=== PATIENT | female | born 1960 | race Hispanic/Latino ===

== ENCOUNTER → 2023-05-21 | Outpatient (CLI) | payer MEDICAID ==
[~2023-05-21] MED LIST: REGADENOSON 0.4 MG/5 ML PF SYG IVP ONE
== END | disposition home or self-care (01) ==
LOC: SHCH 08:04
PROVIDERS: ATTEND Internal Medicine Cardiovascular Disease
DX: I20.9 Angina pectoris, unspecified (principal); R06.09 Other forms of dyspnea
CPT/HCPCS: 78452; 96374; 93017; J2785; A9500 ×2

== ENCOUNTER → 2023-05-23 | Outpatient (CLI) | payer MEDICAID | END | disposition home or self-care (01) | LOC: RAH 11:20 | PROVIDERS: ATTEND Family Medicine | DX: M25.452 Effusion, left hip (principal); M25.552 Pain in left hip; K57.90 Diverticulosis of intestine, part unspecified, without perforation or abscess without bleeding | CPT/HCPCS: 73721 ==

== ENCOUNTER → 2023-06-02 | Outpatient (CLI) | payer MEDICAID | END | disposition home or self-care (01) | LOC: SHCH 15:18 | PROVIDERS: ATTEND Internal Medicine Cardiovascular Disease | DX: R06.09 Other forms of dyspnea (principal); I10 Essential (primary) hypertension | CPT/HCPCS: 93306 ==

== ENCOUNTER 2023-08-31 14:41 | Emergency (ER) | payer MEDICAID ==
[~2023-08-31] VITALS: Ht 154.9 cm; Wt 60.8 kg
[2023-08-31] MEDS ORDERED: METH4TAB3 PO (18:18)
[2023-08-31] MEDS: HYDROCODONE/ACETAMINOPHEN 5/325 MG TAB PO ONE (18:27)
[2023-08-31] MEDS: DEXAMETHASONE SOD PHOSPHATE 4 MG/ML 1ML VIAL IM ONE (18:27)
[2023-08-31 18:36] VITALS: BP 121/62; PULSE 78; RESP 16; O2SAT 97
== END 2023-08-31 18:39 | disposition home or self-care (01) ==
LOC: EDH 14:41
DX: M16.11 Unilateral primary osteoarthritis, right hip (principal); M17.11 Unilateral primary osteoarthritis, right knee; F41.9 Anxiety disorder, unspecified; M19.90 Unspecified osteoarthritis, unspecified site; E03.9 Hypothyroidism, unspecified
CPT/HCPCS: 99284; 73521; 73562; 96372; J1100

== ENCOUNTER 2024-05-29 10:31 | Observation (INO) | payer MEDICARE ==
[2024-05-23 11:45] VITALS: BP 142/61; PULSE 64; RESP 18; TEMP 97.3
[2024-05-23 11:52] LABS: BASOPHILS # (AUTO) 0.04 K/uL (0.00-0.20); BASOPHILS % (AUTO) 0.8 % (0.0-5.0); EOSINOPHILS # (AUTO) 0.08 K/uL (0.00-0.70); EOSINOPHILS % (AUTO) 1.7 % (0.0-8.0); HEMATOCRIT 38.6 % (36-48); IMMATURE GRANULOCYTE ABSOLUTE 0.01 K/uL (0-1); LYMPHOCYTES # (AUTO) 1.8 K/uL (1.0-4.8); MEAN CORPUSCULAR HEMOGLOBIN 32.2 pg (27.0-33.0); MEAN CORPUSCULAR HGB CONC 33.2 g/dL (32.0-36.0); MONOCYTES # (AUTO) 0.3 K/uL (0.1-1.0); NEUTROPHILS # (AUTO) 2.5 K/uL (1.8-7.7); NEUTROPHILS % (AUTO) 52.3 % (40.0-77.0); PLATELET COUNT (AUTO) 306 K/uL (130-400); RED BLOOD CELL COUNT(AUTO) 3.98 MIL/uL (4.00-5.50); RED CELL DISTRIBUTION WIDTH 12.6 % (11.0-15.5); WHITE BLOOD COUNT (AUTO) 4.8 K/uL (4.8-10.8)
[2024-05-23 12:01] LABS: INR <= 0.93 (0.85-1.15); PROTHROMBIN TIME 9.9 SEC (9.6-11.6)
[2024-05-23 12:13] LABS: APPEARANCE,URINE CLOUDY (CLEAR); BILIRUBIN,URINE NEGATIVE (NEGATIVE); COLOR,URINE YELLOW (YELLOW); GLUCOSE, URINE (UA) NEGATIVE (NEGATIVE); KETONES,URINE NEGATIVE (NEGATIVE); LEUKOCYTE ESTERASE ,URINE NEGATIVE Leu/uL (NEGATIVE); NITRATE,URINE NEGATIVE (NEGATIVE); OCCULT BLOOD,URINE NEGATIVE (NEGATIVE); PH,URINE 7.5 (5.0-8.0); PROTEIN,URINE NEGATIVE (NEGATIVE)
[2024-05-23 12:16] LABS: ADD UA MICROSCOPIC NO
[~2024-05-29] VITALS: Ht 162.6 cm; Wt 62.6 kg
[2024-05-29] VITALS (21 sets, daily range): BP systolic 103–126; BP diastolic 50–60; PULSE 56–92; RESP 13–20; TEMP 97.1–99.7
[~2024-05-29 10:31] MED LIST changes: +ALEN70TA80 PO; +ATOR20TA65 PO; +CELE-125 PO; +DULO30CA52 PO; +GABA300C PO; +LEVO112C4 PO; +OLME20TA68 PO; +OXYB15TA19 PO; +PRAM0.5T12 PO; -REGADENOSON 0.4 MG/5 ML PF SYG IVP ONE; +TRAMADOL PO; +TRAZODONE PO
[2024-05-29] MEDS: LACTATED RINGERS 1000ML 1,000 ML IV ONE (11:46)
[2024-05-29] MEDS: ceFAZolin SODIUM 2 GM VIAL ONE (11:46)
[2024-05-29] MEDS ORDERED: VANCOMYCIN 500MG+NS 100ML 100 ML IV ONE (15:54)
[2024-05-29] MEDS ORDERED: MIDAZOLAM HCL 1 MG/ML 2ML VIAL ONE (16:03)
[2024-05-29] MEDS ORDERED: rocuRONium bROMide 10MG/1ML 5ML VL ONE ×2 (16:03→17:08)
[2024-05-29] MEDS ORDERED: proPOFol 10 MG/ML 20ML VIAL IV ONE (16:03)
[2024-05-29] MEDS ORDERED: FENTanyl CITRate PF 50 MCG/1 ML 2ML VIAL ONE (16:04)
[2024-05-29] MEDS ORDERED: dexaMETHasone SOD PHOSPHATE 10MG/ML 1ML VIAL ONE (16:06)
[2024-05-29] MEDS ORDERED: ROPivacaine 0.5% 5MG/ML 30ML ONE (16:08)
[2024-05-29] MEDS ORDERED: TRANEXAMIC ACID 1000MG/10ML ONE (16:46)
--- NOTE | 2024-05-29 17:05 | NUR ---
Pt pending surgery, PT to eval in AM
[2024-05-29] MEDS: ceFAZolin SODIUM 1 GM VIAL ONE (17:08)
[2024-05-29] MEDS ORDERED: NOREPINEPHRINE BITARTRATE 1 MG/1 ML ML IV ONE (19:01)
--- NOTE | 2024-05-29 19:07 | HMCIMG ---
INTRAOPERATIVE FLUOROSCOPIC GUIDANCE UP TO 1 HOUR. IMPRESSION: Intraoperative fluoroscopic guidance was provided for ORIF right total hip arthroplasty, which was performed by Dr. Fabian. Total fluoroscopy time was 29.4 seconds, and administered dose, 5.37 mGy. A total of 5 spot images obtained. Please refer to the orthopedic procedure note for further details.
--- NOTE | 2024-05-29 19:14 | OP ---
Operative Note: DATE OF PROCEDURE: 05/29/24 SURGEON: ABDIFATAH LOTT MD MANAGER TRADE: [Ramakrishna Menchaca CFA] ANESTHESIA: [General anesthesia plus regional block] ANESTHESIOLOGIST/PORTABLE ROUTER OPERATOR: [Tej Bishop] PREOPERATIVE DIAGNOSIS: [Right hip osteoarthritis] POSTOPERATIVE DIAGNOSIS: [Same] IMPLANTS: [BIOMET. G7 acetabular cup size 50 mm. Hi wall liner size 36 mm. Femoral stem taper lock size six high offset. Femoral head size 36-3.] PROCEDURE: [Right total hip arthroplasty] ESTIMATED BLOOD LOSS: [300 mL] INDICATIONS: [The patient is a 63-year-old female with history of pain to both of her hips secondary to osteoarthritis. The patient has been treated conservatively and is no longer responding to treatment. The patient has more pain in the right hip and she would like to proceed with a total hip arthroplasty procedure that she understood, risks, benefits and possible complications and agreed signed the consent form] DESCRIPTION OF PROCEDURE: [After adequate general anesthesia was achieved and regional block obtained the patient was placed in the left lateral decubitus with the use of the beanbag and hip holders. The right lower extremity was prepped and draped in the usual manner after x-rays taken with the C-arm were used to check the position of the pelvis. After anatomic landmarks were identified we proceeded to make an incision in the skin centered on the greater trochanter and with a slight curve posteriorly followed by dissection of the subcutaneous tissue with the use of the Bovie cautery. The tensor fascia ena and gluteus nel fascia were then opened longitudinally and the fibers of the gluteus nel muscle were split manually entering into the deep space applying then the Charnley retractor. A bone infusion needle was then inserted at the base of the greater trochanter and through this needle we proceeded to inject 50 mL of normal saline solution with 500 mg of vancomycin into the femur. The needle was then removed. The posterior border of the gluteus medius was identified and elevated and a curved Hohmann retractor was inserted underneath to be able to expose the gluteus minimus and short external rotators. The interval between the piriformis and gluteus minimus was open with the use of the Bovie cautery and then the rotators and capsule were detached from their femoral neck insertion and retracted posteriorly entering into the hip joint. At this point a marker was applied in the iliac bone just superior to the acetabulum with the use of drill guide to be able to check the offset and the length of the extremity at the level of the trochanter. Once the marker was made this was passed to the back table. We then proceeded to dislocate the hip by flexing and then internally rotating it and after retractors were applied to the base of the femoral neck we proceeded to use the oscillating saw to cut the neck at this level. We then proceeded to use a box osteotome to enter the canal followed by insertion of the canal finder and then we proceeded to broach from size up to above-mentioned size. At this point we removed the last broach and packed the canal for hemostasis and after the retractors were removed we proceeded then to bring the hip into extension. Hohmann retractors were then applied anteriorly and posteriorly to the acetabulum removing then the labrum and foveal tissue. We proceeded to ream the acetabulum medializing it obtainin g adequate cortico-cancellous bone. After irrigation was of the acetabulum was completed we proceeded then to apply the final component and x-rays were taken correcting the orientation of the acetabulum to its final position. Then a trial liner was inserted as well as a trial femur and then we proceeded to apply the trial femoral heads reducing the hip and taken x-rays until we identify the adequate size component using the marker to check the length and offset as well as clinically using the shuck test and measuring the leg length. Once we were satisfied we proceeded to remove the components from the femur and the trial liner after dislocating the hip and after copious irrigation of the joint was completed we then proceeded to apply the final liner followed by the insertion of the final femoral stem femoral head. Once the hip was reduced we used a marker once again and the leg length and offset were normal and clinically the patient had normal length, negative shuck test and x-rays reveal adequate leg le ngth compared to the opposite hip. The joint was then copiously irrigated with a diluted Betadine solution followed by irrigation with antibiotic solution with jet lavage once again and we then proceeded to take final x-rays and then to close the wound first with approximation of the capsule with #1 Vicryl simple stitches followed by approximation of the short external rotators with #2 PDS suture passing the sutures through the bone. The Charnley retractor was then removed and the gluteus nel fascia was closed with a #1 Vicryl running stitch and the tensor fascia ena with #1 Vicryl crossed stitches. The subcutaneous tissue was closed with #2 Monocryl inverted stitches and the skin was closed with 3-0 Monocryl subcuticularly. A suction dressing was then applied to the incision and the drapes were then removed the patient being placed in the supine position. Leg length was checked and noted to be adequate. The patient was then transferred to a hospital bed and taken to recovery room for follow-up by anesthesia. There were no complications during the procedure.] ABDIFATAH LOTT MD May 29, 2024 19:13
[2024-05-29] MEDS ORDERED: ePHEDrine SULFate 50 MG/ML AMPULE ONE (19:22)
[2024-05-29] MEDS ORDERED: GLYCOPYRROLATE 0.2 MG/ML 5 ML VIAL ONE (19:23)
[2024-05-29] MEDS ORDERED: NEOSTIGMINE METHYLSULFATE 1MG/ML IV ONE (19:23)
[2024-05-29] MEDS ORDERED: ondanSETRON 4MG INJ ONE (19:24)
[2024-05-29] MEDS ORDERED: DiphenhydrAMINE HCL 50 MG/ML VIAL IVP PRN (19:30)
[2024-05-29] MEDS ORDERED: PoTASSium chl 10% ELIXIR 20MEQ 20 MEQ/15 ML UDCUP PO PRN (19:30)
[2024-05-29] MEDS ORDERED: PoTASSium chloRIDE 20MEQ ER 20 MEQ ERTAB PO PRN (19:30)
[2024-05-29] MEDS ORDERED: CALCIUM CARB 500MG PO PRN (19:30)
[2024-05-29] MEDS ORDERED: ondanSETRON 4MG INJ IVP PRN (19:30)
[2024-05-29] MEDS ORDERED: PoTASSium chloRIDE 20MEQ/100ML 100 ML IV PRN (19:30)
[2024-05-29] MEDS ORDERED: FERROUS FUMARATE 324 MG TABLET PO PRN (19:30)
[2024-05-29] MEDS: TRANEXAMIC ACID 1000MG/10ML ONE (19:59)
[2024-05-29] MEDS: hydroMORPHone 1 MG INJ ONE ×2 (20:05→20:25)
[2024-05-29] MEDS: 0.9%NACL 1000ML 1,000 ML IV SCH (20:25)
[2024-05-29] MEDS: 0.9%NACL 1000ML 1,000 ML IV ONE (20:29)
[2024-05-29] MEDS: CeleCOXib 200 MG CAP PO SCH (21:13)
[2024-05-29] MEDS: ketOROlac 15MG/ML VIAL (15MG/ML) IV PRN (21:13)
[2024-05-29] MEDS: ASPIRIN 81 MG EC TAB PO SCH (21:13)
[2024-05-29] MEDS: doCUSate SODIUM 100 MG CAP PO SCH (21:23)
[2024-05-30] VITALS (10 sets, daily range): BP systolic 95–129; BP diastolic 30–55; PULSE 67–86; RESP 13–18; TEMP 98–98.6; O2SAT 96
[2024-05-30] MEDS: ceFAZolin SODIUM 1 GM VIAL IVP SCH (00:51)
[2024-05-30] MEDS: HYDROcodone/APAP 5/325 1 TAB TABLET PO PRN (00:51)
[2024-05-30 03:59] LABS: HEMATOCRIT 31.9 % (36-48); MEAN CORPUSCULAR HEMOGLOBIN 32.1 pg (27.0-33.0); MEAN CORPUSCULAR HGB CONC 32.6 g/dL (32.0-36.0); MEAN CORPUSCULAR VOLUME 98.5 fL (79-99); RED BLOOD CELL COUNT(AUTO) 3.24 MIL/uL (4.00-5.50); RED CELL DISTRIBUTION WIDTH 12.8 % (11.0-15.5); WHITE BLOOD COUNT (AUTO) 6.7 K/uL (4.8-10.8)
[2024-05-30 04:11] LABS: CREATININE 0.8 mg/dL (0.5-1.0); POTASSIUM 4.1 mmol/L (3.5-5.1)
[2024-05-30] MEDS: CeleCOXib 200 MG CAP PO SCH (07:48)
[2024-05-30] MEDS: duloXETine HCL 30 MG CAP PO SCH (08:27)
[2024-05-30] MEDS: LoSARTan 100 MG TABLET PO SCH (08:27)
[2024-05-30] MEDS: polyETHYLene GLYCol 3350 17 GM POWD.PACK PO SCH (08:28)
[2024-05-30] MEDS: GABAPENTIN 300 MG CAPSULE PO SCH (08:28)
[2024-05-30] MEDS: atorVAStatin 20 MG TABLET PO SCH (08:28)
[2024-05-30] MEDS: oxyBUTYnin 5 MG TAB.SR.24H PO SCH (09:56)
--- NOTE | 2024-05-30 10:17 | PN ---
Ortho postop day one. This morning patient is still in bed she is tearful reporting that she has been trying to get someone to assist her to the bathroom. States that she has not feeling very well cared for. I discussed with the patient that I will address this with her nurse this morning and clarify what is going on. I have assured her that we are here to help her get better and progress. Discussed that we will have her nurse come in so that she can discuss her concerns with her and she understood. Otherwise she is reporting minimal pain. Vital signs are stable. Afebrile. Laboratory results reviewed. Noted to have a drop in hemoglobin and hematocrit after undergoing total hip arthroplasty. We will address per protocol as necessary. Operative findings discussed with the patient. In forced incentive spirometry. Dressing is intact. Distal neurovascular exam intact. Gastrocnemius soft nontender negative Homans. Voiding on her own. Pending physical therapy. Patient is not sure of her discharge as position whether nursing home facility or home health/PT. We will defer this to case management. Assessment: Status post right total hip arthroplasty. Acute postoperative blood loss anemia. Plan: Continue with Dr. Vogt total hip arthroplasty protocol and discharge planning. Acute postoperative blood loss anemia addressed per protocol as necessary Vitals/Labs Vital Signs Date Time Temp Pulse Resp B/P (MAP) Pulse Ox O2 Delivery O2 Flow Rate FiO2 05/30/24 08:00 98.6 86 18 129/55 96 Room Air 0.0 05/29/24 20:00 100 Laboratory Tests 05/30/24 03:42 Medications Current Medications Cefazolin Sodium 2 gm STK-MED ONCE .ROUTE; Start 05/29/24 at 11:20; Stop 05/29/24 at 11:20; Status DC Lactated Ringer's 1,000 ml @ As Directed STK-MED ONCE IV Last administered on 05/29/24at 11:46; Start 05/29/24 at 11:20; Stop 05/29/24 at 11:20; Status DC Vancomycin HCl 100 ml @ As Directed STK-MED ONCE IV; Start 05/29/24 at 15:54; Stop 05/29/24 at 15:55; Status DC Cefazolin Sodium 1 gm STK-MED ONCE .ROUTE Last administered on 05/29/24at 17:08; Start 05/29/24 at 15:55; Stop 05/29/24 at 15:55; Status DC Propofol 200 mg STK-MED ONCE IV; Start 05/29/24 at 16:03; Stop 05/29/24 at 16:03; Status DC Midazolam HCl 2 mg STK-MED ONCE .ROUTE; Start 05/29/24 at 16:03; Stop 05/29/24 at 16:03; Status DC Rocuronium [place] 50 mg STK-MED ONCE .ROUTE; Start 05/29/24 at 16:03; Stop 05/29/24 at 16:03; Status DC Fentanyl Citrate 100 mcg STK-MED ONCE .ROUTE; Start 05/29/24 at 16:04; Stop 05/29/24 at 16:04; Status DC Dexamethasone Sodium Phosphate 10 mg STK-MED ONCE .ROUTE; Start 05/29/24 at 16:06; Stop 05/29/24 at 16:06; Status DC Ropivacaine 150 mg STK-MED ONCE .ROUTE; Start 05/29/24 at 16:08; Stop 05/29/24 at 16:08; Status DC Tranexamic Acid 1,000 mg STK-MED ONCE .ROUTE; Start 05/29/24 at 16:46; Stop 05/29/24 at 16:46; Status DC Rocuronium [place] 50 mg STK-MED ONCE .ROUTE; Start 05/29/24 at 17:08; Stop 05/29/24 at 17:08; Status DC Norepinephrine Bitartrate 4 mg STK-MED ONCE IV; Start 05/29/24 at 19:01; Stop 05/29/24 at 19:07; Status DC Sodium Chloride 1,000 ml @ 100 mls/hr Q10H IV Last administered on 05/29/24at 20:25; Start 05/29/24 at 19:30; Stop 05/30/24 at 19:29 Polyethylene Glycol 17 gm DAILY PO Last administered on 05/30/24at 08:28; Start 05/30/24 at 09:00; Stop 06/29/24 at 08:59 Bisacodyl 10 mg DAILY PRN RC; Start 06/01/24 at 19:30; Stop 07/01/24 at 19:29 Ketorolac Tromethamine 15 mg Q6H PRN IV Last administered on 05/30/24at 04:09; Start 05/29/24 at 19:30; Stop 06/03/24 at 19:29 Ferrous Fumarate 324 mg DAILY PRN PO; Start 05/29/24 at 19:30; Stop 06/28/24 at 19:29 Calcium Carbonate 500 mg Q12H PRN PO; Start 05/29/24 at 19:30; Stop 06/28/24 at 19:29 Diphenhydramine HCl 25 mg Q6H PRN IVP; Start 05/29/24 at 19:30; Stop 06/28/24 at 19:29 Ondansetron HCl 4 mg Q6H PRN IVP; Start 05/29/24 at 19:30; Stop 06/28/24 at 19:29 Cefazolin Sodium 2 gm Q8H IVP Last administered on 05/30/24at 08:25; Start 05/30/24 at 00:30; Stop 05/30/24 at 08:31; Status DC Docusate Sodium 100 mg BID PO Last administered on 05/30/24at 08:27; Start 05/29/24 at 21:00; Stop 06/28/24 at 20:59 Potassium Chloride 100 ml @ 100 mls/hr AD PRN IV; Start 05/29/24 at 19:30; Stop 06/28/24 at 19:29 Potassium Chloride 20 meq AD PRN PO; Start 05/29/24 at 19:30; Stop 06/28/24 at 19:29 Potassium Chloride 20 meq AD PRN PO; Start 05/29/24 at 19:30; Stop 06/28/24 at 19:29 Celecoxib 200 mg BID PO Last administered on 05/30/24at 08:28; Start 05/29/24 at 21:00; Stop 06/28/24 at 20:59 Acetaminophen/ Hydrocodone Bitart Q4H PRN PO Last administered on 05/30/24at 00:51; Start 05/29/24 at 19:30; Stop 06/03/24 at 19:29 Aspirin 81 mg BID PO Last administered on 05/30/24at 08:27; Start 05/29/24 at 21:00; Stop 06/28/24 at 20:59 Ephedrine Sulfate 50 mg STK-MED ONCE .ROUTE; Start 05/29/24 at 19:22; Stop 05/29/24 at 19:27; Status DC Glycopyrrolate 1 mg STK-MED ONCE .ROUTE; Start 05/29/24 at 19:23; Stop 05/29/24 at 19:27; Status DC Neostigmine Methylsulfate 10 mg STK-MED ONCE IV; Start 05/29/24 at 19:23; Stop 05/29/24 at 19:27; Status DC Ondansetron HCl 4 mg STK-MED ONCE .ROUTE; Start 05/29/24 at 19:24; Stop 05/29/24 at 19:27; Status DC Tranexamic Acid 1,000 mg STK-MED ONCE .ROUTE Last administered on 05/29/24at 19:59; Start 05/29/24 at 19:45; Stop 05/29/24 at 19:45; Status DC Hydromorphone HCl 1 mg STK-MED ONCE .ROUTE Last administered on 05/29/24at 20:05; Start 05/29/24 at 19:54; Stop 05/29/24 at 19:54; Status DC Hydromorphone HCl 1 mg STK-MED ONCE .ROUTE Last administered on 05/29/24at 20:25; Start 05/29/24 at 20:09; Stop 05/29/24 at 20:10; Status DC Sodium Chloride 1,000 ml @ As Directed STK-MED ONCE IV; Start 05/29/24 at 20:24; Stop 05/29/24 at 20:24; Status DC Atorvastatin Calcium 20 mg DAILY PO Last administered on 05/30/24at 08:28; Start 05/30/24 at 09:00; Stop 06/29/24 at 08:59 Celecoxib 200 mg DAILY PO; Start 05/30/24 at 09:00; Stop 06/29/24 at 08:59 Duloxetine HCl 30 mg DAILY PO Last administered on 05/30/24at 08:27; Start 05/30/24 at 09:00; Stop 06/29/24 at 08:59 Gabapentin 300 mg TID PO Last administered on 05/30/24at 08:28; Start 05/30/24 at 09:00; Stop 06/29/24 at 08:59 Alendronate Sodium 70 mg QWEEK@0630 PO; Start 06/01/24 at 06:30; Stop 07/01/24 at 06:29 Levothyroxine Sodium 112 mcg SYN PO; Start 05/31/24 at 06:30; Stop 06/30/24 at 06:29 Losartan Potassium 100 mg DAILY PO Last administered on 05/30/24at 08:27; Start 05/30/24 at 09:00; Stop 06/29/24 at 08:59 Oxybutynin Chloride 15 mg DAILY PO Last administered on 05/30/24at 09:56; Start 05/30/24 at 09:00; Stop 06/29/24 at 08:59 Pramipexole Dihydrochloride 0.5 mg HS PO; Start 05/30/24 at 21:00; Stop 06/29/24 at 20:59 PIERCE CASTAÑEDA NP May 30, 2024 10:17
--- NOTE | 2024-05-30 13:03 | NUR ---
[facility] CM MET WITH PT AND IN ROOM THIS MORNING, ASSESSMENT DONE. PATIENT IS INDEPENDENT PRIOR TO SURGERY, LIVES AT HOME WITH HER AND GRANDSON, DAUGHTER JOANA FROM OUT OF TOWN CURRENTLY STAYING WITH PT TEMPORARILY TO ASSIST PATIENT ONCE SHE GOES BACK HOME. PATIENT VERBALIZED SHE HAS A STANDARD WALKER AT HOME. DENIES ANY OTHER EQUIPMENT/SERVICES. FEELS SAFE TO GO BACK HOME, STILL DRIVE, AND DAUGHTER ABLE TO ASSIST WITH TRANSPORTATION AND NEEDS NECESSARY. DISCUSSED MD RECOMMENDATIONS FOR HOME W/HH, PT AGREEABLE, CONSENT SIGNED [facility] FOR ANY IN NETWORK HH. [facility] HOME W/HH ONCE APPROVED. CM SENT ORDER, CLINICALS TO [facility] [employer] VIA SECURE FAX AND EMAIL, CONFIRMATION RECEIVED. PENDING REP RESPONSE. PT PENDING APPROVAL. CM TO CONTINUE TO FOLLOW UP. Addendum: 05/30/24 at 1306 by MAI URENA LVN Amended: Links added.
--- NOTE | 2024-05-30 18:50 | DS ---
DISCHARGE SUMMARY [Date of admission:05/29/24 Date of discharge: 05/31/24 Final diagnosis: Right hip osteoarthritis Surgical procedures: Right total hip arthroplasty on05/29/24 Summary of History and Physical: The patient is a year-old with history of severe arthrosis to the hip that has been present for several years and has been treated conservatively with no longer adequate response to treatment. The patient is being admitted for total hip arthroplasty. Previous medical history: Hypthyroidism, hyperlipidemia Previous surgical history: left total knee arthroplasty Family history: Diabetes, esential hypertension Social history: Negative for use of tobacco or alcohol. Allergies: NKDA. Review of system: Negative on admission Hospital course: The patient was admitted and taken to the operating room for a right total hip arthroplasty, procedure that went uneventful. Postoperatively the patient remained hemodynamically stable and afebrile. The patient received antibiotic and anticoagulation prophylaxis as per protocol. The patient was evaluated by physical therapy and started rehabilitation treatment with ambulation with the use of walker, weightbearing as tolerated, hip precautions, range of motion exercises and bed transfers. The patient was also evaluated by case management and arrangements were made for discharge . The patient tolerated diet well. On postop day #2 all the arrangements were completed. The dressing was intact and the patient was dismissed . Condition on discharge: Good Disposition: The patient will be dismissed home with home health. Follow-up will be done at the office in 3 weeks. The patient is to continue with physical therapy and rehabilitation at home and be ambulatory with the use of a walker, weightbearing as tolerated and continue with hip precautions. Continue taking pain medication as instructed as well as anticoagulation prophylaxis. Continue with home medications also as instructed and continue with pre admission diet.] ABDIFATAH LOTT MD, JOSE A MD May 30, 2024 18:50
[2024-05-30] MEDS: PRAMIpexole DI-HCL 0.25 MG TABLET PO SCH (19:45)
[2024-05-31] VITALS: BP 95/43; PULSE 65; RESP 18; TEMP 98.1
[2024-05-31 04:00] VITALS: BP 105/38; PULSE 67; RESP 18; TEMP 98.2
[2024-05-31] MEDS: levoTHYROxine 112 MCG TABLET PO SCH (06:16)
[2024-05-31 08:00] VITALS: BP 113/55; PULSE 68; RESP 14; TEMP 98
[2024-05-31] MEDS ORDERED: HYDR-4060 PO (08:08)
[2024-05-31] MEDS ORDERED: AEC81 PO (08:08)
[2024-05-31 09:00] VITALS: O2SAT 98
--- NOTE | 2024-05-31 10:05 | NUR ---
DISCHARGE DISCHARGE ORDERS OBTAINED FOR PATIENT TO BE DISCHARGED HOME WITH [facility]. DISCHARGE INSTRUCTIONS AND DOCUMENTATION GIVEN TO PATIENT AND AT BEDSIDE. BOTH VOICED UNDERSTANDING. IV DISCONTINUED, CATHETER INTACT, NO S/S OF INFECTION NOTED TO SITE. PATIENT TOLERATED WELL. INFORMED PATIENT PAIN MEDICATION AND ASA SENT TO PHARMACY OF CHOICE. VOICED UNDERSTANDING. PATIENT C/O MINOR PAIN TO HIP. ADVISED WOULD HAVE TO MONITOR IF GIVEN ANY PAIN MEDICATIONS PRIOR TO DISCHARGE. PT AGREED. GAVE NORCO PO ORDERED. WILL CONTINUE TO MONITOR PRIOR TO DISCHARGE.
--- NOTE | 2024-05-31 12:00 | NUR ---
DISCHARGE PATIENT LEFT VIA WHEELCHAIR, ACCOMPANIED BY . NO S/S OF DISTRESS NOTED.
--- NOTE | 2024-05-31 15:11 | NUR ---
DISCHARGE 1410 CONTACTED [facility] AT [phone] FOR REPORT. NO ANSWER, LEFT VM FOR NURSE TO CALLBACK REGARDING REPORT. PENDING CALLBACK.
--- NOTE | 2024-05-31 18:51 | NUR ---
DISCHARGE REPORT CALLED IN TO [facility]. SPOKE WITH JONATHAN HAWLEY AND PROVIDED REPORT ON PATIENT'S CONDITION AND MD'S ORDERS. VOICED UNDERSTANDING. WILL FOLLOW UP WITH PATIENT.
[2024-05-31] MEDS ORDERED: atorVAStatin 20 MG TABLET PO SCH (21:00)
[2024-06-01] MEDS ORDERED: ALENDRONATE SODIUM 35 MG TAB PO SCH (06:30)
[2024-06-01] MEDS ORDERED: BisaCODYL 10 MG SUPP.RECT RC PRN (19:30)
== END 2024-05-31 11:45 | disposition home health service (06) ==
LOC: DAH 10:31 → DAHIP 10:32 → DAH 19:15 → 4AH 20:38
PROVIDERS: ADMIT Orthopaedic Surgery; ATTEND Orthopaedic Surgery
DX: M16.11 Unilateral primary osteoarthritis, right hip (principal); G89.18 Other acute postprocedural pain; E78.5 Hyperlipidemia, unspecified; E03.9 Hypothyroidism, unspecified; D62 Acute posthemorrhagic anemia; Z96.652 Presence of left artificial knee joint; Z79.899 Other long term (current) drug therapy
CPT/HCPCS: 85025; 85610; 85730; 81003; 36415 ×2; 87641; 64447; 27130; 96374; 88311; 88304; 73503; 96376; 96375; 80048; 85027; 97161; 97116 ×3; 97530 ×3; G0378 ×37; A4223 ×2; A4663; J7120; J3010; J0690 ×4; J1171 ×2; J3490 ×7; J1100; J7030; J2250; J2704; J2405; J2710; J2795; J1885 ×3; J3370; A4649 ×3; A9272; A4930 ×2; C1776; A5120; A4215; A4222; A4221; A4216

== ENCOUNTER 2024-11-13 06:51 | Observation (INO) | payer OTHER, MEDICARE ==
[2024-11-11 10:16] LABS: IMMATURE GRANULOCYTE ABSOLUTE 0.01 K/uL (0-1); NUCLEATED RED BLOOD CELLS 0.0 % (0.0-0.19); PLATELET COUNT (AUTO) 341 K/uL (130-400); RED BLOOD CELL COUNT(AUTO) 4.11 MIL/uL (4.00-5.50); RED CELL DISTRIBUTION WIDTH 15.2 % (11.0-15.5); WHITE BLOOD COUNT (AUTO) 4.1 K/uL (4.8-10.8)
[2024-11-11 10:18] LABS: APPEARANCE,URINE CLEAR (CLEAR); GLUCOSE, URINE (UA) NEGATIVE (NEGATIVE); LEUKOCYTE ESTERASE ,URINE NEGATIVE Leu/uL (NEGATIVE); NITRATE,URINE NEGATIVE (NEGATIVE); OCCULT BLOOD,URINE NEGATIVE (NEGATIVE)
[2024-11-11 10:22] LABS: ADD UA MICROSCOPIC NO
[2024-11-11 10:23] LABS: CREATININE 0.7 mg/dL (0.5-1.0); GLOMERULAR FILTR. RATE CALC 96.0 mL/min (>90); GLUCOSE,RANDOM 115.0 mg/dL (70-105); SODIUM SERUM 141.0 mmol/L (136-145); UREA NITROGEN, BLOOD 15.0 mg/dL (7-18)
[2024-11-11 10:26] LABS: INR 0.95 (0.85-1.15)
[2024-11-11 10:36] VITALS: BP 152/60; PULSE 57; RESP 13; TEMP 97.5
--- NOTE | 2024-11-11 10:47 | NUR ---
PREOP INCENTIVE SPIROMETRY DONE BY KATE KNIGHT
--- NOTE | 2024-11-12 18:25 | NUR ---
D/C PLAN CM spoke to patient and spouse regarding d/c planning. Patient lives with spouse. Reports she is independent with ADLs and denies having any home services. Reports having the following DME: cane, front wheeled walker. Patient states her bathroom is handicap equipped with high toilet seat. Patient prefers to return home with home health services. Requests 07/05 bedside commode to be arranged. CM obtained [facility] for any in network home health and DME agency. Spouse will be assisting in care at discharge. CM to f/u. Addendum: 11/12/24 at 1852 by TERESA JAIMES CM Amended: Links added.
[2024-11-13] VITALS (32 sets, daily range): BP systolic 112–161; BP diastolic 55–76; PULSE 56–80; RESP 14–20; TEMP 97.3–98.1
[~2024-11-13] VITALS: Ht 154.9 cm; Wt 62.6 kg
[~2024-11-13 06:51] MED LIST changes: -ALEN70TA80 PO; -ATOR20TA65 PO; +BACL10TA PO; +ESOM20CA31 PO; -LEVO112C4 PO; +LEVO112C5 PO; +MELO-108 PO; +MIRA25TA PO; -OXYB15TA19 PO; +PRAM0.258 PO; -PRAM0.5T12 PO; -TRAMADOL PO; +TRAZ-185 PO; -TRAZODONE PO
--- NOTE | 2024-11-13 07:30 | EKG ---
[facility] Test Date: 2024-11-13 Test Time: 07:20:59 Pat Name: VINNY URENA Department: [facility] Room: [facility] Gender: F Cover Operator: [id number] : [id number] Requested By: SURINDER RODAS Order Number: [id number] Reading MD: Les Rooney Measurements Intervals [place] Rate: 67 P: 44 NC: 144 QRS: -2 QRSD: 84 T: 53 QT: 405 QTc: 427 Interpretive Statements Sinus rhythm No previous ECG available for comparison Electronically Signed On 11-13-2024 16:46:56 CDT by Les Rooney Please click the below link to view image of tracing.
[2024-11-13] MEDS ORDERED: TRANEXAMIC ACID 1000MG/10ML ONE (08:15)
[2024-11-13] MEDS ORDERED: VANCOMYCIN 500MG+NS 100ML 100 ML IV ONE (08:15)
[2024-11-13] MEDS ORDERED: LIDOCAINE HCL MPF 1% 5ML VIAL ONE (09:08)
[2024-11-13] MEDS ORDERED: MIDAZOLAM HCL 1 MG/ML 2ML VIAL ONE (09:10)
[2024-11-13] MEDS ORDERED: GLYCOPYRROLATE 0.2 MG/ML 5 ML VIAL ONE ×2 (09:56→11:44)
--- NOTE | 2024-11-13 11:24 | OP ---
Operative Note: DATE OF PROCEDURE: 11/13/24 SURGEON: ABDIFATAH LOTT MD CLAY MAKER: [Maria A Hodges CFA] ANESTHESIA: [General anesthesia plus regional block] ANESTHESIOLOGIST/FIELD ASSESSOR: [Binh Asher CRNA] PREOPERATIVE DIAGNOSIS: [Right knee osteoarthritis] POSTOPERATIVE DIAGNOSIS: [Same] IMPLANTS: [BIOMET VANGUARD. Femur size 62.5 PS right. Tibia size 67 fixed cruciate. Tibial liner size 14 by 63/67 PS plus. Patella size 31 x 8, asymmetric.] PROCEDURE: [Right total knee arthroplasty] ESTIMATED BLOOD LOSS: [Less than 100 mL] INDICATIONS: [The patient needs 63-year-old female with history of severe pain to the right knee secondary to osteoarthritis condition that the patient has seen multiple joints and has been operated with the placement multiple times. The patient is brought the open room us if any conservative treatment for a total knee arthroplasty. Procedure on this tooth, agrees, benefits and possible complications of the patient has agreed to sign the consent form] DESCRIPTION OF PROCEDURE: [After adequate general anesthesia was achieved and regional block obtained the right lower extremity was prepped and draped in the usual manner previous placement of the tourniquet in the proximal thigh. The extremity was then elevated and exsanguinated with an Esmarch bandage and the tourniquet inflated to 250 mmHg the Esmarch band been then removed. With the knee in flexion a longitudinal incision was then made in the anterior aspect through the skin followed by dissection of the subcutaneous tissue. A bone infusion needle was then inserted just medial to the tibial tuberosity and through this needle we injected into the bone a solution of normal saline 50 mL mixed with 500 mg of vancomycin. The needle was removed. A paramedian approach was then made with the Bovie cautery cutting through the quadriceps tendon, medial patellar retinaculum and patellar tendon retinaculum. The retropatellar tendon fat was then excised and the soft tissue elements of the tibia were elevated subperiosteally and retractors were applied medially and laterally . The anterior and posterior cruciate ligaments were resected. With the use of a drill a starting hole was made in the distal femur entering the intramedullary canal and then after removal of the drill an intramedullary guide was inserted with a 5 degree valgus block that touched the distal femur and to this the distal femoral cutting guide was then applied anteriorly and was secured to the distal femur with the use of pins. The intramedullary guide was then removed and with the use of the oscillating saw we proceeded to resect the distal femur removing the fragments and the guide. The femoral sizer was then applied distally and drill holes were made removing the sizer and the 4-in-1 cutting block was then inserted and the anterior, posterior and chamfer cuts were made removing the fragments and the block. The PS cutting guide was then inserted and the intercondylar cut was made removing the fragment and the guide. The posterior cruciate ligament retractor was then inserted posterior to the tibia and this was brought forward proceeding then to apply the external tibial alignment guide and secured the proximal cutting guide to the tibia with the use of pins. With the use of the oscillating saw the proximal cut to the tibia tibia was made. The bone fragment was removed and the trial tibia plate was chosen. At this point the menisci were removed sharply and with the use of the curved osteotome the posterior osteophytes of the femur were removed. The trial components were then inserted at the femur and tibia with a trial tibial liner bringing the knee into extension noticing that the patient had a very stable knee in flexion, extension and with valgus stress, but laxity with varus stress. The posterolateral corner was examined and it was noted that it was intact. The knee was maintained in extension and the patella was then addressed proceeding to measure its thickness and then with the use of the oscillating saw we removed eight mm from the articular surface and restored the height with application of a trial component after 3 peg holes were made. The patellofemoral ligament was removed and then the patellofemoral tracking was checked noticing to be tracking slightly lateral and tilted and for this reason a lateral retinacular release was performed bringing the tracking back to normal. At this moment all the components were removed, the tibia after the metaphyseal defect was created and while cement was being mixed on the back table we proceeded to irrigate the joint with antibiotic solution and then cover the entry to the femoral canal with a bone plug. Once the cement was ready we proceeded to apply it first to the tibia surface inserting the final component and then to the femoral surface and inserted the final component removing the excess cement and then applying a trial liner bringing the knee into extension for compression. Then we proceeded to irrigate the patella surface and dried it applying then bone cement and the final patellar component was inserted and was secured with application of a clamp. The joint was irrigated with a warm diluted Betadine solution while the cement dried followed by irrigation with antibiotic solution. The trial liner was removed as well as the patellar clamp and we proceeded then to irrigate the posterior aspect of the joint to remove all the remaining debris. Then we proceeded to release the medial collateral ligament subperiosteally from the proximal tibia allowing more medial space and we tried then a 14 mm liner which stabilize the knee in flexion and extension with no laxity. After the final tibial liner was inserted and locked against the tibia. The range of motion was checked and noticed to be adequate with full extension and flexion, no laxity in valgus or varus stress and with adequate patellofemoral tracking. The patient had no anterior or posterior drawer. The tourniquet was then deflated and this was followed by hemostasis and the wound was then closed with approximation of the quadriceps tendon, patellar retinaculum and patellar tendon retinaculum with #1 Vicryl close stitches alternating with #1 Ethibond stitches, and closure of the subcutaneous tissue with 2-0 Monocryl inverted stitches and the skin was closed with 3-0 Monocryl subcuticularly. The wound was covered with a suction dressing followed by application of an Roderick bandage for compression and the drapes were then removed transferring the patient to the hospital bed and taken to recovery room for follow-up by anesthesia. There were no complications during the procedure.] ABDIFATAH LOTT MD Nov 13, 2024 11:24
[2024-11-13] MEDS ORDERED: PoTASSium chl 10% ELIXIR 20MEQ 20 MEQ/15 ML UDCUP PO PRN (11:30)
[2024-11-13] MEDS ORDERED: PoTASSium chloRIDE 20MEQ ER 20 MEQ ERTAB PO PRN (11:30)
[2024-11-13] MEDS ORDERED: CALCIUM CARB 500MG PO PRN (11:30)
[2024-11-13] MEDS ORDERED: FERROUS FUMARATE 324 MG TABLET PO PRN (11:30)
[2024-11-13] MEDS ORDERED: NEOSTIGMINE METHYLSULFATE 1MG/ML IV ONE (11:44)
[2024-11-13] MEDS: TRANEXAMIC ACID 1000MG/10ML ONE (12:10)
[2024-11-13] MEDS: CYCLOBENZAPRINE HCL 10 MG TABLET ONE (13:28)
--- NOTE | 2024-11-13 14:30 | NUR ---
Arrival PT is alert and orientd to the room. The call morales is placed in reach and she is instructed on how to use it. The bed is in a low position . PT is assessed and ICe packes are plced to the right knee. SCD are placed. PT is assessed for pain and PRN medication is administered. Gilberto toscano to monitor and assess.
[2024-11-13] MEDS: LACTATED RINGERS 1000ML 1,000 ML IV ONE (14:38)
[2024-11-13] MEDS: 0.9%NACL 1000ML 1,000 ML IV SCH (15:48)
[2024-11-13] MEDS: ASPIRIN 81 MG EC TAB PO SCH (21:36)
[2024-11-13] MEDS: BACLOFEN 10 MG TABLET PO SCH (21:36)
[2024-11-14] VITALS: BP 117/51; PULSE 70; RESP 18; TEMP 97.7
[2024-11-14] MEDS: CYCLOBENZAPRINE HCL 10 MG TABLET PO PRN (02:53)
[2024-11-14 03:04] VITALS: BP 138/60; PULSE 64; RESP 16; TEMP 97.8
[2024-11-14 04:11] LABS: NUCLEATED RED BLOOD CELLS 0.0 % (0.0-0.19); PLATELET COUNT (AUTO) 273.0 K/uL (130-400); RED BLOOD CELL COUNT(AUTO) 3.4 MIL/uL (4.00-5.50); RED CELL DISTRIBUTION WIDTH 15.3 % (11.0-15.5); WHITE BLOOD COUNT (AUTO) 6.0 K/uL (4.8-10.8)
[2024-11-14 04:27] LABS: CREATININE 0.6 mg/dL (0.5-1.0); GLOMERULAR FILTR. RATE CALC 100.0 mL/min (>90); GLUCOSE,RANDOM 124.0 mg/dL (70-105); SODIUM SERUM 140.0 mmol/L (136-145); UREA NITROGEN, BLOOD 14.0 mg/dL (7-18)
[2024-11-14 08:00] VITALS: O2SAT 99
[2024-11-14 08:07] VITALS: BP 145/65; PULSE 64; RESP 16; TEMP 97.9
[2024-11-14] MEDS: MELOXICAM 7.5 MG TABLET PO SCH (08:27)
[2024-11-14] MEDS: (Mirabegron (Myrbetriq) 25 MG) PO SCH (08:28)
--- NOTE | 2024-11-14 09:14 | PN ---
Ortho postop day one. This morning the patient is awake alert and oriented she is seated out of bed in chair resting comfortably reporting adequate pain control. Vital signs have been stable. Afebrile. Voiding on her own. Laboratory results reviewed. Noted to have a drop in hemoglobin and hematocrit as expected after TKA. Currently the patient is asymptomatic and we will continue to observe and address per protocol as necessary. Reinforced incentive spirometry. Operative findings discussed with the patient. The dressing is intact flashing green. Gastrocnemius soft nontender. She has alternating extension and flexion with a footstool. Distal neurovascular exam normal. Ambulated a few steps yesterday and is pending further physical therapy this morning. Anticipated discharge goal is home health/PT. Assessment: Status post right TKA. Acute postoperative blood loss anemia. Plan: Continue with Dr. Vogt was TKA protocol and discharge planning. Acute postoperative blood loss anemia addressed per protocol as necessary Vitals/Labs Vital Signs Date Time Temp Pulse Resp B/P (MAP) Pulse Ox O2 Delivery O2 Flow Rate FiO2 11/14/24 08:07 97.9 64 16 145/65 99 Room Air 11/13/24 21:50 0 21 Laboratory Tests 11/14/24 03:29 Medications Current Medications Cefazolin Sodium 2 gm STK-MED ONCE .ROUTE; Start 11/13/24 at 06:57; Stop 11/13/24 at 06:57; Status DC Lactated Ringer's 1,000 ml @ As Directed STK-MED ONCE IV; Start 11/13/24 at 06:57; Stop 11/13/24 at 06:57; Status DC Tranexamic Acid 1,000 mg STK-MED ONCE .ROUTE; Start 11/13/24 at 08:15; Stop 11/13/24 at 08:15; Status DC Cefazolin Sodium 1 gm STK-MED ONCE .ROUTE; Start 11/13/24 at 08:15; Stop 11/13/24 at 08:15; Status DC Vancomycin HCl 100 ml @ As Directed STK-MED ONCE IV; Start 11/13/24 at 08:15; Stop 11/13/24 at 08:16; Status DC Lidocaine HCl 5 ml STK-MED ONCE .ROUTE; Start 11/13/24 at 09:08; Stop 11/13/24 at 09:08; Status DC Midazolam HCl 2 mg STK-MED ONCE .ROUTE; Start 11/13/24 at 09:10; Stop 11/13/24 at 09:10; Status DC Propofol 200 mg STK-MED ONCE IV; Start 11/13/24 at 09:10; Stop 11/13/24 at 09:10; Status DC Rocuronium Filer 50 mg STK-MED ONCE .ROUTE; Start 11/13/24 at 09:10; Stop 11/13/24 at 09:10; Status DC Fentanyl Citrate 100 mcg STK-MED ONCE .ROUTE; Start 11/13/24 at 09:10; Stop 11/13/24 at 09:11; Status DC Ropivacaine 150 mg STK-MED ONCE .ROUTE; Start 11/13/24 at 09:20; Stop 11/13/24 at 09:20; Status DC Glycopyrrolate 1 mg STK-MED ONCE .ROUTE; Start 11/13/24 at 09:56; Stop 11/13/24 at 09:57; Status DC Cefazolin Sodium 3 gm STK-MED ONCE IVPB Last administered on 11/13/24at 10:02; Start 11/13/24 at 10:02; Stop 11/13/24 at 10:06; Status DC Rocuronium Filer 50 mg STK-MED ONCE .ROUTE; Start 11/13/24 at 10:03; Stop 11/13/24 at 10:04; Status DC Vancomycin HCl 500 mg STK-MED ONCE IJ Last administered on 11/13/24at 10:02; Start 11/13/24 at 10:02; Stop 11/13/24 at 10:06; Status DC Cefazolin Sodium 2 gm STK-MED ONCE IVPB Last administered on 11/13/24at 09:25; Start 11/13/24 at 09:25; Stop 11/13/24 at 10:09; Status DC Sodium Chloride 1,000 ml @ 100 mls/hr Q10H IV Last administered on 11/13/24at 15:48; Start 11/13/24 at 11:30; Stop 11/14/24 at 11:29 Polyethylene Glycol 17 gm DAILY PO Last administered on 11/14/24at 08:27; Start 11/14/24 at 09:00; Stop 12/14/24 at 08:59 Bisacodyl 10 mg DAILY PRN RC; Start 11/16/24 at 11:30; Stop 12/16/24 at 11:29 Ketorolac Tromethamine 15 mg Q6H PRN IV Last administered on 11/14/24at 02:52; Start 11/13/24 at 11:30; Stop 11/18/24 at 11:29 Ferrous Fumarate 324 mg DAILY PRN PO; Start 11/13/24 at 11:30; Stop 12/13/24 at 11:29 Ondansetron HCl 4 mg Q6H PRN IVP; Start 11/13/24 at 11:30; Stop 12/13/24 at 11:29 Calcium Carbonate 500 mg Q12H PRN PO; Start 11/13/24 at 11:30; Stop 12/13/24 at 11:29 Diphenhydramine HCl 25 mg Q6H PRN IVP; Start 11/13/24 at 11:30; Stop 12/13/24 at 11:29 Cefazolin Sodium 2 gm Q8H IVPB Last administered on 11/13/24at 23:19; Start 11/13/24 at 16:30; Stop 11/14/24 at 00:31; Status DC Cyclobenzaprine HCl 5 mg Q8H PRN PO Last administered on 11/14/24at 02:53; Start 11/13/24 at 11:30; Stop 12/13/24 at 11:29 Potassium Chloride 100 ml @ 100 mls/hr AD PRN IV; Start 11/13/24 at 11:30; Stop 12/13/24 at 11:29 Potassium Chloride 20 meq AD PRN PO; Start 11/13/24 at 11:30; Stop 12/13/24 at 11:29 Potassium Chloride 20 meq AD PRN PO; Start 11/13/24 at 11:30; Stop 12/13/24 at 11:29 Oxycodone HCl 5 mg Q4H PRN PO Last administered on 11/13/24at 19:32; Start 11/13/24 at 11:30; Stop 11/20/24 at 11:29 Oxycodone HCl 10 mg Q4H PRN PO Last administered on 11/14/24at 05:45; Start 11/13/24 at 11:30; Stop 11/20/24 at 11:29 Tramadol HCl 50 mg Q6H PRN PO; Start 11/13/24 at 11:30; Stop 11/18/24 at 11:29 Acetaminophen 1,000 mg Q8H PO Last administered on 11/14/24at 02:52; Start 11/13/24 at 11:30; Stop 12/13/24 at 11:29 Aspirin 81 mg BID PO Last administered on 11/14/24at 08:27; Start 11/13/24 at 21:00; Stop 12/13/24 at 20:59 Glycopyrrolate 1 mg STK-MED ONCE .ROUTE; Start 11/13/24 at 11:44; Stop 11/13/24 at 11:44; Status DC Neostigmine Methylsulfate 10 mg STK-MED ONCE IV; Start 11/13/24 at 11:44; Stop 11/13/24 at 11:44; Status DC Fentanyl Citrate 100 mcg STK-MED ONCE .ROUTE Last administered on 11/13/24at 12:10; Start 11/13/24 at 12:02; Stop 11/13/24 at 12:03; Status DC Tranexamic Acid 1,000 mg STK-MED ONCE .ROUTE Last administered on 11/13/24at 12:10; Start 11/13/24 at 12:03; Stop 11/13/24 at 12:03; Status DC Oxycodone HCl 5 mg STK-MED ONCE .ROUTE; Start 11/13/24 at 13:26; Stop 11/13/24 at 13:27; Status DC Cyclobenzaprine HCl 10 mg STK-MED ONCE .ROUTE Last administered on 11/13/24at 13:28; Start 11/13/24 at 13:26; Stop 11/13/24 at 13:27; Status DC Baclofen 10 mg TID PO Last administered on 11/14/24at 08:27; Start 11/13/24 at 21:00; Stop 12/13/24 at 20:59 Celecoxib 200 mg DAILY PO Last administered on 11/14/24at 08:27; Start 11/14/24 at 09:00; Stop 12/14/24 at 08:59 Duloxetine HCl 30 mg DAILY PO Last administered on 11/14/24at 08:27; Start 11/14/24 at 09:00; Stop 12/14/24 at 08:59 Gabapentin 100 mg TID PO Last administered on 11/14/24at 08:27; Start 11/13/24 at 21:00; Stop 12/13/24 at 20:59 Pramipexole Dihydrochloride 0.25 mg BID PO Last administered on 11/14/24at 08:27; Start 11/13/24 at 21:00; Stop 12/13/24 at 20:59 Trazodone HCl 50 mg HS PO Last administered on 11/13/24at 21:36; Start 11/13/24 at 21:00; Stop 12/13/24 at 20:59 Pantoprazole Sodium 40 mg DAILY PRN PO; Start 11/14/24 at 09:00; Stop 12/14/24 at 08:59 Levothyroxine Sodium 112 mcg SYN PO Last administered on 11/14/24at 05:43; Start 11/14/24 at 06:30; Stop 12/14/24 at 06:29 Meloxicam 15 mg DAILY PO Last administered on 11/14/24at 08:27; Start 11/14/24 at 09:00; Stop 12/14/24 at 08:59 Home Med (Mirabegron (Myrbetriq) 25 MG) DAILY PO; Start 11/14/24 at 09:00; Stop 12/14/24 at 08:59 Losartan Potassium 100 mg DAILY PO Last administered on 11/14/24at 08:27; Start 11/14/24 at 09:00; Stop 12/14/24 at 08:59 PIERCE CASTAÑEDA NP Nov 14, 2024 09:14
--- NOTE | 2024-11-14 10:33 | NUR ---
[facility]. Addendum: 11/14/24 at 1034 by KEYLA RAY RN CM Amended: Links added.
[2024-11-14 11:33] VITALS: BP 131/56; PULSE 57; RESP 16; TEMP 97.8
--- NOTE | 2024-11-14 14:17 | NUR ---
DC PLAN PATIENT ACCEPTED TO [facility] [phone]. RONDA BOJORQUEZ MD, CHARGE KNOW, NURSING COMMUNICATION PLACED. CALLED [facility] REGARDING 3 IN 1 SAID DID NOT RECEIVE RE SENT PACKET. Addendum: 11/14/24 at 1420 by KEYLA RAY RN CM Amended: Links added.
[2024-11-14 15:49] VITALS: BP 127/60; PULSE 59; RESP 16; TEMP 98.1
[2024-11-14] MEDS ORDERED: OXYC-38 PO (15:54)
[2024-11-14] MEDS ORDERED: AEC81 PO (15:54)
--- NOTE | 2024-11-14 16:40 | NUR ---
PATIENT DISCHARGE HOME WITH HOME HEALTH ID BAND AND IV REMOVED. DISCHARGE INSTRUCTIONS EXPLAINED AND GIVEN TO PATIENT. PATIENT VERBALIZED UNDERSTANDING. BELONGINGS PACKED AND TAKEN BY PATIENT. PATIENT VERBALIZED UNDERSTANDING. WHEELED DOWN TO PRIVATE CAR.
== END 2024-11-14 16:40 | disposition home health service (06) ==
LOC: DAH 06:51 → DAHIP 06:52 → 4CH 14:30 → 4AH 21:48 → 4BH 11-14 15:31
PROVIDERS: ADMIT Orthopaedic Surgery; ATTEND Orthopaedic Surgery
DX: M17.11 Unilateral primary osteoarthritis, right knee (principal); G89.18 Other acute postprocedural pain; D62 Acute posthemorrhagic anemia; E03.9 Hypothyroidism, unspecified; E78.5 Hyperlipidemia, unspecified; Z79.899 Other long term (current) drug therapy
CPT/HCPCS: 80048 ×2; 85025; 85610; 87086; 81003; 36415 ×2; 87641; 27447; 96365; 96366; 96375; 64447; 88311; 88305; 97161; 97116 ×3; 97530 ×5; 93005; 96376; 85027; G0378 ×29; A4663; J7120 ×2; J0690 ×6; J3010 ×2; J3490 ×7; J2250; J2704; J2710; J2795; J1885 ×2; J3373 ×2; A9272; A4649 ×3; A4930 ×2; C1713; C1776; A5120; A4215; A4223 ×2; A4213; A4222; A4221; A4216